=== PATIENT | male | born 1950 | race Caucasian/White ===

== ENCOUNTER 2018-04-10 13:19 | Emergency (ER) | payer BC, OTHER ==
[~2018-04-10] VITALS: Ht 165.1 cm; Wt 65.8 kg
[2018-04-10 13:39] VITALS: BP 143/111
--- NOTE | 2018-04-10 13:46 | NUR ---
PT TRIAGED AND SENT TO [facility] AWARE OF PT STATUS
--- NOTE | 2018-04-10 14:21 | NUR ---
PATIENT AMB. TO BED #1
--- NOTE | 2018-04-10 14:25 | NUR ---
PT C/O STOMACH PAIN OVER WHOLE ABDOMEN AND CONSTIPATION FOR 3 DAYS. DENIES N/V. 5/10 PAIN. DENIES CP/COUGHSOB AT THIS TIME. NO OTHER COMPLAINTS.
[2018-04-10] MEDS ORDERED: KETOROLAC 30 MG/ML VIAL IM ONE (14:55)
[2018-04-10 15:39] LABS: BASOPHILS % (AUTO) 0.7 % (0.0-2.0); EOSINOPHILS # (AUTO) 0.1 K/uL (0-0.4); EOSINOPHILS % (AUTO) 1.7 % (0.0-4.0); HEMATOCRIT 44.7 % (36-52); HEMOGLOBIN 14.8 g/dL (12.0-18.0); LYMPHOCYTES # (AUTO) 1.8 K/uL (2.0-11.5); LYMPHOCYTES % (AUTO) 28.1 % (20.5-51.1); MEAN CORPUSCULAR HEMOGLOBIN 30 pg (27-31); MEAN CORPUSCULAR HGB CONC 33 g/dL (33-37); MEAN CORPUSCULAR VOLUME 91.4 fL (80-94); MONOCYTES # (AUTO) 0.5 K/uL (0.8-1.0); MONOCYTES % (AUTO) 7.9 % (1.7-9.3); NEUTROPHILS # (AUTO) 3.9 K/uL (1.8-7.7); NEUTROPHILS % (AUTO) 61.6 % (42.2-75.2); PLATELET COUNT (AUTO) 235 K/uL (140-450); RED BLOOD CELL COUNT(AUTO) 4.89 MIL/uL (4.20-6.10); RED CELL DISTRIBUTION WIDTH 13.3 % (11.6-13.7); WHITE BLOOD COUNT (AUTO) 6.3 K/uL (4.8-10.8)
[2018-04-10 15:51] LABS: ANION GAP 7.5 (8-16); CARBON DIOXIDE 31.4 mmol/L (21-32); CREATININE 0.7 mg/dL (0.7-1.3); POTASSIUM 3.9 mmol/L (3.5-5.1)
[2018-04-10 15:57] LABS: ALBUMIN 4.1 g/dL (3.4-5.0); TOTAL BILIRUBIN 0.5 mg/dL (0.0-1.0)
[2018-04-10 16:46] VITALS: BP 129/59
--- NOTE | 2018-04-10 16:46 | NUR ---
Patient discharged with v/s stable. Written and verbal after care instructions given and explained. Patient alert, oriented and verbalized understanding of instructions. Ambulatory with steady gait. All questions addressed prior to discharge. ID band removed. Patient advised to follow up with PMD. Rx of MIRALAX AND BENTYL given. Patient educated on indication of medication including possible reaction and side effects. Opportunity to ask questions provided and answered.
== END 2018-04-10 16:46 | disposition home or self-care (01) ==
LOC: MED 13:19
DX: R10.84 Generalized abdominal pain (principal); G20 Parkinson's disease
CPT/HCPCS: 36415; 74176; 80053; 83690; 85025; 96372; 99285; J1885